=== PATIENT | male | born 1990 | race Caucasian/White ===

== ENCOUNTER 2017-10-05 14:22 | Emergency (ER) | payer MEDICAID ==
[2017-10-05] MEDS ORDERED: BUPIVACAINE 0.25% PF 30 ML VIAL ONE (14:46)
--- NOTE | 2017-10-05 15:33 | XRAY Preliminary Report ---
Exam: XR FINGER(S) LT IMPRESSION: Soft tissue injury. [facility] SITE ID: [id number]
--- NOTE | 2017-10-05 15:36 | XRAY Report ---
EXAM: LEFT SECOND DIGIT RADIOGRAPHY EXAM DATE: 10/05/2017 03:04 PM. CLINICAL HISTORY: Left index finger lac with extensor tendon involvm. COMPARISON: None. TECHNIQUE: 3 views. FINDINGS: Bones: Normal. No fracture or bone lesion. Joints: Slight flexion of DIP joint. Otherwise unremarkable. Soft Tissues: Mild soft tissue swelling. No foreign body. IMPRESSION: Soft tissue injury. [facility] Referring Provider Line: [phone] SITE ID: [id number]
--- NOTE | 2017-10-05 15:50 | ED Physician Documentation ---
PD HPI UPPER EXT INJURY - Stated complaint Stated Complaint: FINGER LAC - Chief complaint Chief Complaint: Ext Problem - History obtained from History obtained from: Patient - History of Present Illness Location: Left, Finger (index) Timing - onset: How many hours ago (6) Similar symptoms before: Has not had sx before - Additonal information Additional information: The patient is an otherwise healthy 27-year-old male who presents with laceration to his left index finger. He was helping [employer]one pigs about 6 hours prior to arrival when a knife cut him across the dorsum of his finger at the DIP joint. He has noticed inability to extend his index finger at the DIP joint since the injury occurred. His tetanus status is up-to-date. He is right hand dominant. Review of Systems Constitutional: denies: Fever Respiratory: denies: Dyspnea Skin: reports: Laceration (s) Musculoskeletal: denies: Extremity swelling Neurologic: denies: Focal weakness, Numbness PD PAST MEDICAL HISTORY - Past Medical History Cardiovascular: None Respiratory: None Neuro: None Endocrine/Autoimmune: None GI: None : None HEENT: None Psych: None Musculoskeletal: None Derm: None - Past Surgical History Past Surgical History: No - Present Medications Home Medications: Ambulatory Orders Medication Instructions Recorded Confirmed No Known Home Medications [No 10/05/17 10/05/17 Known Home Medications] - Allergies Allergies/Adverse Reactions: Allergies Allergy/AdvReac Type Severity Reaction Status Date / Time No Known Drug Allergies Allergy Verified 10/05/17 15:55 - Social History Does the pt smoke?: No Smoking Status: Never smoker Does the pt drink ETOH?: Yes Does the pt have substance abuse?: No - Immunizations Immunizations are current?: Yes - POLST Patient has POLST: No PD ED PE NORMAL - Vitals Vital signs reviewed: Yes (normal) - General General: Alert and oriented X 3, Well developed/nourished - HEENT HEENT: Atraumatic - Respiratory Respiratory: No respiratory distress - Derm Derm: No rash - Extremities Extremities: Other (There is a 1 cm laceration across the dorsum of the left index finger at the level of the DIP joint. The patient is unable to extend the tip of finger. Distal neurovascular is intact.) - Neuro Neuro: Alert and oriented X 3, No motor deficit, No sensory deficit Results - Vitals Vitals: Oxygen O2 Source Room air - Rads (name of study) left index finger Radiology: Prelim report reviewed, EMP read contemporaneously, See rad report ( Soft tissue injury.) Procedures - Regional nerve block Nerve block site: Digital - note digit(s) Right / left: Left Nerve block anesthesia: Marcaine 0.25% Nerve block aftercare: Excellent anesthesia, No complications PD MEDICAL DECISION MAKING - ED course Complexity details: reviewed results, re-evaluated patient, considered differential, d/w patient, d/w travel sales consultant ED course: The patient's presentation is significant for extensor tendon laceration of the left index finger, caused by knife wound. X-ray reveals no bony abnormality. Treatment in the emergency department included administration of Ancef 1 g IM. A digital nerve block was performed using 0.25% Marcaine. I discussed his condition with Dr. Bustamante, the orthopedist, who evaluated him in the emergency department and performed operative repair of the injury. I discussed with the patient the planned follow-up with Dr. Bustamante, as well as potentially worrisome signs or symptoms that should prompt reevaluation in the emergency department. Departure - Departure Disposition: 01 Home, Self Care Clinical Impression: Extensor tendon laceration of finger with open wound Qualifiers: Encounter type: initial encounter Qualified Code(s): S66.529A - Laceration of intrinsic muscle, fascia and tendon of unspecified finger at wrist and hand level, initial encounter Condition: Stable Instructions: ED Laceration Tendon Follow-Up: Donna Bustamante MD [Provider Admit Priv/Credential] - Comments: Keep the wound clean. Take medication as prescribed by Dr. Bustamante. Follow-up for suture removal as instructed by Dr. Bustamante. Return to the emergency department if you develop any sign of infection, or otherwise worsening symptoms. Discharge Date/Time: 10/05/17 17:10
[2017-10-05] MEDS ORDERED: LIDOCAINE 1% 2 ML VIAL ONE (16:06)
[2017-10-05] MEDS ORDERED: ceFAZolin 1 GM VIAL ONE ×3 (16:06→16:31)
[2017-10-05] MEDS: ceFAZolin 1 GM VIAL IM STA ×2 (16:09→17:23)
[2017-10-05] MEDS ORDERED: WATER FOR INJECTION,STERILE 10 ML ONE (16:32)
[2017-10-05 16:55] VITALS: BP 124/68
--- NOTE | 2017-10-05 17:26 | CONSULTATION NOTE ---
DATE OF CONSULTATION: 10/05/2017 00:00:00 REQUESTING PROVIDER: CHIEF COMPLAINT: Left index finger laceration. 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 The patient cont inued to finish his work and ultimately came to the emergency room after he had had his lunch at abou t 2 p.m. and he was found to have an open injury with direct exposure of the IP joint. The patient un derwent a digital block and was examined by the ER doctor and I was asked to consult. The patient's p rior medical history is noncontributory. He is on no medications and is a healthy young man. His exam ination showed left index finger to have an obliquely oriented laceration across the dorsum directly over the DIP joint, in the depths of this could be seen the dorsal aspect of the DIP joint with compl ete transection of the extensor tendon. The wound appeared clean and had been vigorously cleansed by the emergency room doctor. The patient's neurovascular exam was intact. He did not have the ability t o extend that joint fully and had pain when it was fully flexed, but he has full flexion evident. IMPRESSION: The patient has a late presentation of extensor laceration of the DIP joint with a trauma tic arthrotomy. Recommendation is that the patient undergo a pinning of the joint in extension and a repair of his laceration with the pin to remain in place for 6 weeks and allow coaptation of the exte nsor tendon without placing material into the wound. I discussed this with the patient, and he signed a surgical consent to proceed and it was elected to avoid further delay in his treatment waiting for anesthesia and an open operating room, so it was elected to do this in the emergency room. DESCRIPTION OF PROCEDURE: The patient underwent an iodine prep of his hand and sterile dressings were placed around his fingers to isolate the index finger. The 0.062 K-wire was noted on to a hand drive r and driven across his DIP joint longitudinally and this kept his finger joint in extension appropri ately. The pin was placed to a depth at the base of the middle phalanx. It was cut outside the finger tip so that a Jurgan ball could be applied. The wound was then closed with 3-0 nylon interrupted. Jw rile dressings were applied, as well as a volar splint after which the patient was then allowed to be discharged home, to leave this dressing intact until he is seen in my clinic in 1 week and he was wr itten for pain medication. He was advised not to be bending his finger so as not to break his pin. JOB #: [id number] EXT JOB #:[id number]
== END 2017-10-05 17:10 | disposition home or self-care (01) ==
LOC: ED 14:22
DX: S66.321A Laceration of extensor muscle, fascia and tendon of left index finger at wrist and hand level, initial encounter (principal); W26.0XXA Contact with knife, initial encounter; Y93.G1 Activity, food preparation and clean up; Y99.0 Civilian activity done for income or pay
CPT/HCPCS: 26418; 64450; 73140; 99283